=== PATIENT | female | born 1985 | race Caucasian/White ===

== ENCOUNTER 2021-12-07 00:47 | Day surgery (SDC) | payer OTHER, SELFPAY ==
[2021-11-24 15:24] VITALS: BMI 32.9
--- NOTE | 2021-11-24 15:40 | PC.NURSE ---
Addendum entered by Laura Otero RN 11/30/21 08:28: PT TO ARRIVE AT 1130 ON 12/07/21 FOR SURGERY AT 1330. Original Note: Report to the Outpatient Waiting Room, entrance under the green pavilion located off [facility], at time ___929___ on date __12/01/2021____. OR Time: __1129 . - You and your visitor will be asked to self-screen and do not enter if you have any COVID symptoms. - Only one visitor and NO children visitors are allowed at this time. - The patient visitor is requested to leave or wait in car when not with patient due to restrictions. - A mask is required within the hospital. Patients may have clear liquids (water, carbonated beverages, clear teas, apple juice) until 3 hours prior to surgery with a maximum of 20 ounces. - No food from midnight until time of surgery - Infants may have breast milk until 4 hours before surgery, infant formula 6 hours prior to surgery. - Children will be allowed to drink immediately following surgery. If applicable, please bring a bottle or sippy cup to assist with drinking. Juice, water, soda, and popsicles are readily available. For infants on formula, please bring formula the day of surgery. Pacifiers are allowed. Take the following medications with a SIP of water the morning of surgery: n/a Medications to discontinue per physician n/a Date to take last dose n/a Please no make-up, nail lithuanian, hairspray, perfume, deodorant, or body powder the day of surgery. No jewelry (including any body piercings) or valuables the day of surgery, leave them at home. Please take a shower or bath the night before, or the morning of, surgery with an antibacterial soap. Wear comfortable, loose fitting clothing. Children are encouraged to wear pajamas. - Jewelry must be removed prior to entering the operating room. Rings and piercings that are not removed may be cut off. - The hospital will not accept responsibility for valuables. - Please leave all valuables, including medications, at home the day of surgery. If you are going home after surgery, a licensed dump truck driver off highway must drive you home. - NO public transportation without another adult. - We recommend that an adult stay with you for 24 hours following discharge. - We also recommend that you do not drive, make important decision, drink alcoholic beverages, or take any drugs that were not prescribed by your health care provider for at least 24 hours after your discharge time. For Pediatric surgeries, we recommend two adults accompany the child home (only one inside the building at this time). Follow any additional instructions given to you from your surgeon. If you or anyone in your household have experienced Covid symptoms in the past week, please notify your surgeon or the nurse liaison at the phone number below for possible testing. Telephone instructions given to patient and asked if any additional questions and then verbalized understanding. Patient advised to call surgeon office or pre surgery nurse liaison [phone] if any additional questions.
--- NOTE | 2021-11-30 08:27 | PC.NURSE ---
Medications updated in EMR. Pt has had sore throat and is taking z-flaco, to be finished Saturday 12/02. No other changes in health history since initial interview. New pre-op instructions reviewed with pt. Pt denies further questions at this time.
--- NOTE | 2021-12-06 15:28 | PM.IMHP ---
H&P: HPI History of Present Illness Date/Time: 12/06/21 15:28 36-year-old female 5 para 4014 presents for evaluation and treatment of right lower quadrant pain and adnexal cyst. Last month began with pain and had an ultrasound performed showed a 5cm cyst. Was given progesterone and repeat ultrasound and the cyst is now at around 6cm, And does have some internal echoes. She continued to have pain on this right side and therefore presents today for ovarian cystectomy as well as possible oophorectomy though cystectomy will be preferred. Also of significance has had a history of hernia repair in the paraumbilical region with mesh placement. Chief Complaint: Right lower quadrant pain with mass Review of Systems Review of Systems: All systems reviewed & are unremarkable except as noted in HPI and below PMFSH Past Medical History Medical History Hernia Surgical History Surgical History (Updated 12/06/21 @ 15:31 by Waldemar Espinosa MD) Delivery by section (07/10/05) primary c/s / rpt c/s x 3 Family History Family History Father Diabetes mellitus Hypertension Grandparent H/O ovarian cancer maternal grandmother Cancer of kidney maternal grandmother Social History Social History Smoking status: Former smoker Tobacco type: cigarettes and e-cigarettes/vaping Smoking end date: 08/08/19 Additional smoking assessment comments: 1 pack/month cigarettes--vaped daily Alcohol intake: current Alcohol use details: 2/month Substance use: never Substance use type: does not use Additional living arrangements comments: / Engaged Additional occupation/education comments: MANAGER [employer] Gender identity (if verbalized by the patient): Female Sexual Orientation (if Verbalized by the Patient): Straight or Heterosexual Spiritual care concerns: No Meds Home Medications and Allergies Home Medications Medication Instructions Recorded Confirmed Type azithromycin 250 mg tablet See Rx Instructions .Route .COMPLEX 11/30/21 11/30/21 History Allergies Allergy/AdvReac Type Severity Reaction Status Date / Time amoxicillin [From Augmentin] Allergy Intermediate Rash Verified 11/30/21 08:27 clavulanic acid Allergy Intermediate Rash Verified 11/30/21 08:27 [From Augmentin] methylphenidate Allergy Intermediate Rash Verified 11/30/21 08:27 [From Concerta] Penicillins Allergy Intermediate Rash Verified 11/30/21 08:27 Exam Const: General: cooperative, healthy appearing and comfortable Resp: Effort & Inspection: normal respiratory effort Auscultation: clear to auscultation bilaterally Cardio: Rate: regular rate Rhythm: regular rhythm GI: Inspection: incision GI Palp: Yes Tenderness to palpation present (GI) ( Right lower quadrant to deep palpati) Auscultation: normal bowel sounds : External Female Exam: normal external appearance Speculum Exam - Vagina: normal appearance of the vagina Speculum Exam - Cervix: normal appearance of the cervix Bimanual exam- vagina & uterus: uterine size normal Bimanual Exam- Adnexa, other: tender ( right adnexa enlarged and tender) Assessment and Plan Assessment and plan (1) Ovarian cyst: Code(s): N83.209 - Unspecified ovarian cyst, unspecified side Status: Acute Assessment and Plan: proceed with laparoscopic ovarian cystectomy /possible oophorectomy (2) Hernia: Code(s): K46.9 - Unspecified abdominal hernia without obstruction or gangrene Status: Acute Assessment and Plan: left upper quadrant incision will be made due to mesh placement. I have also discussed with her the potential for open surgery due to adhesions in the area of the umbilicus which may make laparoscopic approach not possible. Patient states good under
[2021-12-07] VITALS (7 sets, daily range): BP systolic 90–129; BP diastolic 57–73; PULSE 50–67; RESP 12–16; TEMP 36.4–36.6; O2SAT 98–100
[2021-12-07] MEDS: LACTATED RINGERS 1,000 ML 30 ML IV CONT ×2 (12:00→14:47)
[2021-12-07] MEDS: ACETAMINOPHEN 500 MG TABLET 1000 MG PO (12:25)
[2021-12-07] MEDS: KETOROLAC 15 MG/ML VIAL (*BKC) IV PUSH (12:26)
[2021-12-07 12:49] LABS: Hematocrit 40.7 % (37.0-47.0); Hemoglobin 13.8 g/dL (12.0-15.0)
--- NOTE | 2021-12-07 12:58 | P.PNAN_ITS ---
Anes - Initial Pre Proc Eval Procedure: Operation Date: 12/07/21 13:30 Proposed Procedures p Laparoscopic Right Ovarian Cystectomy - Waldemar Espinosa MD Date/Time: 12/07/21 12:58 Surgeon: Waldemar Espinosa MD Pre Op Diagnosis: right ovarian cyst Patient Data Age: 36 Gender: F Height: 1.57 m Weight: 81.65 kg Allergies Allergy/AdvReac Type Severity Reaction Status Date / Time amoxicillin [From Augmentin] Allergy Intermediate Rash Verified 11/30/21 08:27 clavulanic acid Allergy Intermediate Rash Verified 11/30/21 08:27 [From Augmentin] methylphenidate Allergy Intermediate Rash Verified 11/30/21 08:27 [From Concerta] Penicillins Allergy Intermediate Rash Verified 11/30/21 08:27 Home Medications Medication Instructions Recorded Confirmed Type azithromycin 250 mg tablet See Rx Instructions .Route .COMPLEX 11/30/21 11/30/21 History Laboratory Tests 12/07/21 12:33 Hgb Pending Hct Pending Patient hx anesthesia problems: other (slow to awaken) Family hx anesthesia problems: none Results Review: All pre-operative results and documents have been reviewed as part of the pre- operative evaluation. [facility] Past Medical History Medical History Hernia Surgical History Surgical History (Updated 12/07/21 @ 11:54 by Leann Jimenez) Delivery by section (07/10/05) primary c/s / rpt c/s x 3 History of hernia repair History of tubal ligation Family History Family History Father Diabetes mellitus Hypertension Grandparent H/O ovarian cancer maternal grandmother Cancer of kidney maternal grandmother Social History Social History Smoking status: Former smoker Tobacco type: cigarettes and e-cigarettes/vaping Smoking end date: 08/08/19 Additional smoking assessment comments: 1 pack/month cigarettes--vaped daily Alcohol intake: current Alcohol use details: 2/month Substance use: never Substance use type: does not use Living arrangements: with family Additional living arrangements comments: / Engaged 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[employer] Gender identity (if verbalized by the patient): Female Sexual Orientation (if Verbalized by the Patient): Straight or Heterosexual Spiritual care concerns: No Anes - Eval Final PreProcedure Day of Procedure 12/07/21 12:58 Patient weight: obese Heart: regular rate and rhythm Lungs: clear to auscultation Airway: Mallampati scale class II Neurological: alert and oriented Last oral intake: >/= 8 hours ASA classification: II Emergent: no Anesthetic plan: proceed Anesthesia type and monitoring: general ETT and standard monitoring Results Review: All pre-operative results and documents have been reviewed as part of the pre- operative evaluation. Informed Consent: The patient's anesthetic plan and its attendant risks and benefits were discussed with the patient/family/POA. Questions were solicited and answers provided to the satisfaction of the patient/family/POA.
--- NOTE | 2021-12-07 13:21 | WPDHPUPDATE1 ---
History and Physical Update Update Date/Time: 12/07/21 13:21 History and Physical has been reviewed, including an updated exam of the patient. There are NO changes in the patient's condition. Risks, benefits, and alternatives have been discussed and questions answered. Patient agrees to proceed with procedure.
--- NOTE | 2021-12-07 14:14 | SUR.OPER ---
Dr Weiss in OR for consult 1412 to 1413.
--- NOTE | 2021-12-07 14:40 | P.OP_ITS ---
Procedure Note - Detailed Date of Procedure 12/07/21 Pre-op Diagnosis right ovarian cyst Post-op Diagnosis Other (1. Right ovarian cyst consistent with dermoid. 2. Right paratubal cyst.) Procedure Performed 1. Laparoscopic right ovarian cystectomy 2. Laparoscopic right partial salpingectomy Surgeon Waldemar Espinosa MD Anesthesia General Findings 1. Minimal adhesions from prior hernia repair in the midline 2. Right ovarian cyst 3. Right paratubal cyst 4. Abdominal wall cyst (possible peritoneal inclusion cyst) Description of Procedure Patient was prepped and draped in the usual manner for this procedure. Cervical instruments were placed for uterine mobility throughout the case. Left upper quadrant entry site for the camera port due to prior midline surgery. This was undertaken with immediate visualization of bowel and omentum and the lower late ral trocars were then placed under direct visualization. Once this was undertaken through evaluation throughout revealed no other abnormalities other than those listed above in the findings. Of interest there was lateral to the midline below the umbilicus a 3-4 cm what appeared to be fluid filled cyst which was not a herniation. Scalpel was used to remove the distal portion of the right tube with cyst. Then the Harmonic scalp was used to incise the ovary and drain approximately 10cc of clear fluid. As the cyst wall was being shelled out of the ovary there was a small amount of fatty tissue and a few pieces of hair noted. Once the cyst wall was taken out of the ovary and removed irrigation was undertaken and all of the fatty tissue and hair were removed without difficulty. Once this was accomplished the bed of the biopsy site on the ovary did appear without abnormality and there was no bleeding. Gas was allowed to escape trocars were removed and the incisions were approximated using 4-0 Monocryl. Estimated Blood Loss 10 Drains No Packing No Pathology Yes Complications No immediate complications Condition Stable Disposition PACU [facility] Billing Surgery - Charge Forward: Surgery Billing
== END 2021-12-07 16:15 | disposition home or self-care (01) ==
PROVIDERS: Anesthesiology; Visit Provider Obstetrics & Gynecology
PROC: (CPT 49320; principal; 2021-12-07 13:30)
DX: D27.0 Benign neoplasm of right ovary (principal); N83.8 Other noninflammatory disorders of ovary, fallopian tube and broad ligament; Z87.891 Personal history of nicotine dependence; K66.8 Other specified disorders of peritoneum; N99.4 Postprocedural pelvic peritoneal adhesions; R10.2 Pelvic and perineal pain; E66.9 Obesity, unspecified; Z68.32 Body mass index [BMI] 32.0-32.9, adult; K46.9 Unspecified abdominal hernia without obstruction or gangrene
CPT/HCPCS: 58662; 58661; 36415; 85014; 85018; 88302; 88305; A9270; J1100; J1885; J2250; J2405; J2704; J2710; J3010; J7030; J7120